=== PATIENT | male | born 1975 | race African-American/Black ===

== ENCOUNTER 2019-12-14 02:17 | Inpatient (IN) | payer MEDICAID ==
[~2019-12-14] VITALS: Ht 175.3 cm; Wt 113.4 kg
[2019-12-14] MEDS ORDERED: ASPIRIN 325MG TABLET PO ONE (03:30)
[2019-12-14 03:32] LABS: BASOPHILS % 1.1 % (0.0-2.0); EOSINOPHILS % 2.6 % (0.0-5.0); HEMATOCRIT. 55.2 % (42.0-52.0); HEMOGLOBIN. 18.1 g/dL (14.0-18.0); LYMPHOCYTES % 26.9 % (20.0-50.0); MEAN CORPUSCULAR HEMOGLOBIN 31.1 pg (28.0-32.0); MEAN CORPUSCULAR VOLUME 94.9 fL (80.0-94.0); MEAN PLATELET VOLUME 8.2 fl (7.4-10.4); MONOCYTES % 10.3 % (2.0-8.0); NEUTROPHILS % 59.1 % (40.0-76.0); PLATELET 279 x1000/uL (130-400); RED BLOOD CELL COUNT 5.82 mill/uL (4.7-6.1); RED CELL DISTRIBUTION WIDTH 15.4 % (11.6-14.6)
[2019-12-14 03:33] LABS: CHLORIDE 101 mEq/L (98-107)
[2019-12-14 04:36] LABS: *AMPHETAMINES SCREEN URINE NEGATIVE (NEGATIVE); CANNABINOID URINE SCREEN PRESUMTIVE POSITIVE (NEGATIVE); METHADONE URINE SCREEN NEGATIVE (NEGATIVE); OPIATES URINE SCREEN NEGATIVE (NEGATIVE); PHENCYCLIDINE URINE SCREEN NEGATIVE (NEGATIVE)
[2019-12-14 04:37] LABS: *BARBITURATES SCREEN URINE NEGATIVE (NEGATIVE); *BENZODIAZEPINES SCREEN URINE NEGATIVE (NEGATIVE); *COCAINE SCREEN URINE NEGATIVE (NEGATIVE)
[2019-12-14] MEDS ORDERED: MAGNESIUM/ALUMINUM HYDROXIDE/SIMETHICONE 30ML UDC PO PRN (06:45)
[2019-12-14] MEDS ORDERED: CLONIDINE 0.1MG TABLET PO PRN (06:45)
[2019-12-14] MEDS ORDERED: ONDANSETRON HCL 4MG/2ML INJ IV PRN (06:45)
[2019-12-14] MEDS ORDERED: GUAIFENESIN 200MG/10ML SUGAR FREE UDC PO PRN (06:45)
[2019-12-14] MEDS ORDERED: DIPHENHYDRAMINE 50MG/ML VIAL IV PRN (06:45)
[2019-12-14] MEDS ORDERED: LORAZEPAM 2MG/ML CPJ IV PRN (06:45)
[2019-12-14] MEDS ORDERED: ACETAMINOPHEN 325MG TABLET PO PRN (06:45)
[2019-12-14] MEDS ORDERED: DOCUSATE SODIUM 100MG CAPSULE PO PRN (06:45)
[2019-12-14] MEDS ORDERED: HYDROCODONE/ACETAMINOPHEN 10/325MG TABLET PO PRN (06:45)
[2019-12-14] MEDS ORDERED: IPRATROPIUM/ALBUTEROL 0.5-3(2.5)MG/3ML NEB HHN PRN (06:45)
[2019-12-14] MEDS ORDERED: MORPHINE SULFATE 2 MG/ML CPJ (NOT FOR IM USE) IV PRN (06:45)
[2019-12-14] MEDS ORDERED: HYDRALAZINE 20MG/ML VIAL IV PRN (06:45)
[2019-12-14 09:33] LABS: T4 FREE 1.48 ng/dL (0.76-1.46)
[2019-12-14] MEDS: FUROSEMIDE 40MG/4ML VIAL IVP SCH (09:56)
[2019-12-14] MEDS: ENOXAPARIN 30MG/0.3ML SYR SUBCUT SCH ×2 (09:58→21:01)
[2019-12-14 17:34] VITALS: BP 153/83
[2019-12-14 18:00] VITALS: BP 158/83
[2019-12-14 22:00] VITALS: BP 130/68
[2019-12-14] MEDS: SODIUM CHLORIDE 0.9% INJ 3ML FLUSH IVF SCH (22:00)
[2019-12-15] VITALS (10 sets, daily range): BP systolic 108–144; BP diastolic 52–111
[2019-12-15 00:02] LABS: CREATINE KINASE 76 IU/L (39-308); CREATINE KINASE MB FRACTION 2.8 ng/mL (0.5-3.6)
[2019-12-15] MEDS: SODIUM CHLORIDE 0.9% INJ 3ML FLUSH IVF SCH ×3 (05:22→21:49)
[2019-12-15] MEDS: FUROSEMIDE 40MG/4ML VIAL IVP SCH (07:54)
[2019-12-15] MEDS: ENOXAPARIN 30MG/0.3ML SYR SUBCUT SCH ×2 (07:54→21:49)
[2019-12-15 12:11] LABS: BG BASE EXCESS 12.4 mmol/L (-2.0-2.0); BG CARBOXYHEMOGLOBIN 0.8 % (0.5-1.5); BG DEOXYHEMOGLOBIN 1.7 % (0.0-5.0); BG FRACTION INSPIRED OXYGEN 34; BG HCO3 ACT 44.7 mmol/L (22.0-26.0); BG METHEMOGLOBIN 0.6 % (0.0-1.5); BG OXYGEN SATURATION 98.3 % (92.0-98.5); BG OXYHEMOGLOBIN 96.9 % (94.0-97.0); BG PCO2 89.6 mmHg (35.0-45.0); BG PH 7.316 (7.350-7.450); BG SAMPLE SITE RIGHT RADIAL; BG TOTAL HEMOGLOBIN 19.2 g/dL (12.0-18.0); BG VENT MODE NASAL CANNULA
[2019-12-15 12:48] LABS: BASOPHILS % 1.2 % (0.0-2.0); EOSINOPHILS % 2.2 % (0.0-5.0); HEMATOCRIT. 55.6 % (42.0-52.0); HEMOGLOBIN. 17.8 g/dL (14.0-18.0); LYMPHOCYTES % 26.4 % (20.0-50.0); MEAN CORPUSCULAR HEMOGLOBIN 30.8 pg (28.0-32.0); MEAN PLATELET VOLUME 8.1 fl (7.4-10.4); MONOCYTES % 11.8 % (2.0-8.0); NEUTROPHILS % 58.4 % (40.0-76.0); PLATELET 254 x1000/uL (130-400); RED BLOOD CELL COUNT 5.79 mill/uL (4.7-6.1); RED CELL DISTRIBUTION WIDTH 15.5 % (11.6-14.6)
[2019-12-15 12:53] LABS: CHLORIDE 97 mEq/L (98-107)
[2019-12-16] VITALS (12 sets, daily range): BP systolic 120–152; BP diastolic 61–99
[2019-12-16] MEDS: SODIUM CHLORIDE 0.9% INJ 3ML FLUSH IVF SCH ×3 (05:56→20:19)
[2019-12-16 06:33] LABS: BASOPHILS % 0.8 % (0.0-2.0); EOSINOPHILS % 2.6 % (0.0-5.0); HEMATOCRIT. 55.1 % (42.0-52.0); HEMOGLOBIN. 18.1 g/dL (14.0-18.0); LYMPHOCYTES % 27.9 % (20.0-50.0); MEAN CORPUSCULAR HEMOGLOBIN 31.1 pg (28.0-32.0); MEAN CORPUSCULAR VOLUME 94.8 fL (80.0-94.0); MEAN PLATELET VOLUME 8.1 fl (7.4-10.4); MONOCYTES % 10.9 % (2.0-8.0); NEUTROPHILS % 57.8 % (40.0-76.0); PLATELET 230 x1000/uL (130-400); RED BLOOD CELL COUNT 5.81 mill/uL (4.7-6.1); RED CELL DISTRIBUTION WIDTH 15.5 % (11.6-14.6)
[2019-12-16 07:02] LABS: CHLORIDE 98 mEq/L (98-107)
[2019-12-16] MEDS: FUROSEMIDE 40MG/4ML VIAL IVP SCH (08:06)
[2019-12-16] MEDS: ENOXAPARIN 30MG/0.3ML SYR SUBCUT SCH ×2 (08:06→20:19)
[2019-12-16] MEDS ORDERED: LIDOCAINE HCL/PF 1% 2ML VIAL ONE (09:55)
[2019-12-16 13:52] LABS: BG BASE EXCESS 10.1 mmol/L (-2.0-2.0); BG DEOXYHEMOGLOBIN 12.9 % (0.0-5.0); BG FRACTION INSPIRED OXYGEN 21; BG HCO3 ACT 39.4 mmol/L (22.0-26.0); BG METHEMOGLOBIN 0.2 % (0.0-1.5); BG OXYGEN SATURATION 86.9 % (92.0-98.5); BG OXYHEMOGLOBIN 85.9 % (94.0-97.0); BG PCO2 67.9 mmHg (35.0-45.0); BG PH 7.382 (7.350-7.450); BG PO2 50.5 mmHg (75.0-100.0); BG SAMPLE SITE RIGHT RADIAL; BG TOTAL HEMOGLOBIN 19.9 g/dL (12.0-18.0); BG VENT MODE ROOM AIR
[2019-12-17] VITALS (13 sets, daily range): BP systolic 113–150; BP diastolic 62–87
[2019-12-17] MEDS: SODIUM CHLORIDE 0.9% INJ 3ML FLUSH IVF SCH ×3 (06:13→20:34)
[2019-12-17] MEDS: FUROSEMIDE 40MG/4ML VIAL IVP SCH (08:09)
[2019-12-17] MEDS: ENOXAPARIN 30MG/0.3ML SYR SUBCUT SCH ×2 (08:09→20:33)
== END 2019-12-17 23:27 | disposition home or self-care (01) | DRG 133 ==
LOC: ER 02:39 → ENRESERV 15:04 → 3WST 17:26
PROVIDERS: ADMIT Internal Medicine; ATTEND Internal Medicine
DX: J96.00 Acute respiratory failure, unspecified whether with hypoxia or hypercapnia (principal); J44.9 Chronic obstructive pulmonary disease, unspecified; F12.90 Cannabis use, unspecified, uncomplicated; I50.9 Heart failure, unspecified; Z87.891 Personal history of nicotine dependence; Z99.81 Dependence on supplemental oxygen; Z79.899 Other long term (current) drug therapy
CPT/HCPCS: 36415; 36600; 71045; 80048; 80053; 80061; 80305; 82375; 82550; 82553; 82805; 83036; 83880; 84439; 84443; 84484; 85025; 85379; 93005; 93306; 93970; 94640; 99291; J1650; J1940; J3490

== ENCOUNTER 2021-04-08 03:27 | Inpatient (IN) | payer MEDICAID, OTHER ==
[~2021-04-08] VITALS: Ht 175.3 cm; Wt 122.0 kg
[2021-04-08] MEDS ORDERED: FUROSEMIDE 40MG/4ML VIAL IVP ONE (10:00)
[2021-04-08 11:05] LABS: BASOPHILS % 0.8 % (0.0-2.0); EOSINOPHILS % 2.1 % (0.0-5.0); HEMATOCRIT. 57.7 % (42.0-52.0); HEMOGLOBIN. 17.8 g/dL (14.0-18.0); LYMPHOCYTES % 21.3 % (20.0-50.0); MEAN CORPUSCULAR VOLUME 84.3 fL (80.0-94.0); MONOCYTES % 11.9 % (2.0-8.0); NEUTROPHILS % 63.9 % (40.0-76.0); PLATELET 264 x1000/uL (130-400); RED BLOOD CELL COUNT 6.84 mill/uL (4.7-6.1); RED CELL DISTRIBUTION WIDTH 19.6 % (11.6-14.6)
[2021-04-08 11:09] LABS: CHLORIDE 96 mEq/L (98-107)
[2021-04-08 12:23] LABS: BG BASE EXCESS 15.1 mmol/L (-2.0-2.0); BG CARBOXYHEMOGLOBIN 2.4 % (0.5-1.5); BG FRACTION INSPIRED OXYGEN 21; BG HCO3 ACT 48.1 mmol/L (22.0-26.0); BG METHEMOGLOBIN 0.1 % (0.0-1.5); BG OXYHEMOGLOBIN 59.5 % (94.0-97.0); BG PCO2 94.1 mmHg (35.0-45.0); BG PH 7.326 (7.350-7.450); BG PO2 34.3 mmHg (75.0-100.0); BG SAMPLE SITE RIGHT RADIAL; BG TOTAL HEMOGLOBIN 19.2 g/dL (12.0-18.0); BG VENT MODE ROOM AIR
[2021-04-08] MEDS ORDERED: ACETAMINOPHEN 325MG TABLET PO PRN (13:30)
[2021-04-08] MEDS ORDERED: IPRATROPIUM/ALBUTEROL 0.5-3(2.5)MG/3ML NEB HHN PRN (13:30)
[2021-04-08] MEDS ORDERED: ONDANSETRON HCL 4MG/2ML INJ IV PRN (13:30)
[2021-04-08] MEDS ORDERED: METHYLPREDNISOLONE SOD SUCC 40 MG/ML VIAL IV SCH (15:30)
[2021-04-08 16:20] LABS: BG BASE EXCESS 11.3 mmol/L (-2.0-2.0); BG CARBOXYHEMOGLOBIN 1.4 % (0.5-1.5); BG FRACTION INSPIRED OXYGEN 5016; BG HCO3 ACT 44.5 mmol/L (22.0-26.0); BG METHEMOGLOBIN 0.6 % (0.0-1.5); BG PCO2 97.1 mmHg (35.0-45.0); BG PH 7.279 (7.350-7.450); BG PO2 174.6 mmHg (75.0-100.0); BG TOTAL HEMOGLOBIN 19.2 g/dL (12.0-18.0); BG VENT MODE MASK - BIPAP
[2021-04-08] MEDS: FUROSEMIDE 40MG/4ML VIAL IVP SCH (17:32)
[2021-04-08] MEDS ORDERED: ENOXAPARIN 30MG/0.3ML SYR SUBCUT SCH (18:00)
[2021-04-08 23:29] VITALS: BP 137/66
[2021-04-08] MEDS ORDERED: FURO-151 MT (23:54)
[2021-04-08] MEDS ORDERED: POTA25TA8 MT (23:54)
[2021-04-08] MEDS ORDERED: LASIX (23:54)
[2021-04-09] VITALS (11 sets, daily range): BP systolic 109–146; BP diastolic 49–87
[2021-04-09] MEDS: METHYLPREDNISOLONE SOD SUCC 40 MG/ML VIAL IV SCH ×4 (00:06→21:37)
[2021-04-09] MEDS: ENOXAPARIN 30MG/0.3ML SYR SUBCUT SCH ×3 (00:06→21:36)
[2021-04-09] MEDS: FUROSEMIDE 40MG/4ML VIAL IVP SCH ×2 (08:20→17:19)
[2021-04-09 09:08] LABS: BASOPHILS % 0.4 % (0.0-2.0); HEMATOCRIT. 57.9 % (42.0-52.0); HEMOGLOBIN. 17.8 g/dL (14.0-18.0); LYMPHOCYTES % 10.7 % (20.0-50.0); MEAN CORPUSCULAR HEMOGLOBIN 26.3 pg (28.0-32.0); MEAN CORPUSCULAR VOLUME 85.4 fL (80.0-94.0); MEAN PLATELET VOLUME 8.2 fl (7.4-10.4); MONOCYTES % 1.2 % (2.0-8.0); NEUTROPHILS % 87.7 % (40.0-76.0); PLATELET 261 x1000/uL (130-400); RED BLOOD CELL COUNT 6.78 mill/uL (4.7-6.1); RED CELL DISTRIBUTION WIDTH 20.1 % (11.6-14.6)
[2021-04-09 09:14] LABS: CHLORIDE 94 mEq/L (98-107)
[2021-04-09] MEDS: IPRATROPIUM/ALBUTEROL 0.5-3(2.5)MG/3ML NEB HHN SCH ×3 (10:08→22:07)
[2021-04-09 12:03] LABS: BG BASE EXCESS 17.1 mmol/L (-2.0-2.0); BG CARBOXYHEMOGLOBIN 1.6 % (0.5-1.5); BG DEOXYHEMOGLOBIN 6.6 % (0.0-5.0); BG FRACTION INSPIRED OXYGEN 36; BG HCO3 ACT 47.8 mmol/L (22.0-26.0); BG METHEMOGLOBIN 0.5 % (0.0-1.5); BG OXYGEN SATURATION 93.3 % (92.0-98.5); BG OXYHEMOGLOBIN 91.3 % (94.0-97.0); BG PCO2 77.6 mmHg (35.0-45.0); BG PH 7.407 (7.350-7.450); BG SAMPLE SITE RIGHT RADIAL; BG TOTAL HEMOGLOBIN 18.9 g/dL (12.0-18.0); BG VENT MODE NASAL CANNULA
[2021-04-10] VITALS (12 sets, daily range): BP systolic 114–168; BP diastolic 69–115
[2021-04-10] MEDS: IPRATROPIUM/ALBUTEROL 0.5-3(2.5)MG/3ML NEB HHN SCH ×4 (02:00→21:40)
[2021-04-10] MEDS: METHYLPREDNISOLONE SOD SUCC 40 MG/ML VIAL IV SCH ×3 (05:34→21:30)
[2021-04-10 07:03] LABS: CHLORIDE 91 mEq/L (98-107)
[2021-04-10 07:23] LABS: BASOPHILS % 0.1 % (0.0-2.0); HEMATOCRIT. 52.4 % (42.0-52.0); HEMOGLOBIN. 16.4 g/dL (14.0-18.0); LYMPHOCYTES % 7.3 % (20.0-50.0); MEAN CORPUSCULAR HEMOGLOBIN 26.4 pg (28.0-32.0); MEAN CORPUSCULAR VOLUME 84.5 fL (80.0-94.0); MEAN PLATELET VOLUME 8.5 fl (7.4-10.4); MONOCYTES % 4.3 % (2.0-8.0); NEUTROPHILS % 88.3 % (40.0-76.0); PLATELET 317 x1000/uL (130-400); RED BLOOD CELL COUNT 6.21 mill/uL (4.7-6.1); RED CELL DISTRIBUTION WIDTH 19.9 % (11.6-14.6)
[2021-04-10] MEDS: FUROSEMIDE 40MG/4ML VIAL IVP SCH ×2 (08:31→17:18)
[2021-04-10] MEDS: ENOXAPARIN 30MG/0.3ML SYR SUBCUT SCH ×2 (08:32→21:30)
[2021-04-10] MEDS: SPIRONOLACTONE 25MG TABLET PO SCH (17:21)
[2021-04-11] VITALS (10 sets, daily range): BP systolic 123–166; BP diastolic 69–94
[2021-04-11] MEDS: IPRATROPIUM/ALBUTEROL 0.5-3(2.5)MG/3ML NEB HHN SCH ×3 (03:30→14:36)
[2021-04-11] MEDS: FUROSEMIDE 40MG/4ML VIAL IVP SCH (05:23)
[2021-04-11] MEDS: METHYLPREDNISOLONE SOD SUCC 40 MG/ML VIAL IV SCH ×2 (05:24→14:05)
[2021-04-11 07:32] LABS: HEMATOCRIT. 56.5 % (42.0-52.0); HEMOGLOBIN. 17.7 g/dL (14.0-18.0); MEAN CORPUSCULAR HEMOGLOBIN 26.3 pg (28.0-32.0); MEAN CORPUSCULAR VOLUME 83.9 fL (80.0-94.0); MEAN PLATELET VOLUME 8.3 fl (7.4-10.4); PLATELET 299 x1000/uL (130-400); RED BLOOD CELL COUNT 6.74 mill/uL (4.7-6.1); RED CELL DISTRIBUTION WIDTH 19.7 % (11.6-14.6)
[2021-04-11 08:05] LABS: CHLORIDE 91 mEq/L (98-107)
[2021-04-11 09:29] LABS: BG BASE EXCESS 11.6 mmol/L (-2.0-2.0); BG CARBOXYHEMOGLOBIN 1.3 % (0.5-1.5); BG DEOXYHEMOGLOBIN 6.2 % (0.0-5.0); BG FRACTION INSPIRED OXYGEN 28; BG HCO3 ACT 39.2 mmol/L (22.0-26.0); BG METHEMOGLOBIN 0.3 % (0.0-1.5); BG OXYGEN SATURATION 93.7 % (92.0-98.5); BG OXYHEMOGLOBIN 92.2 % (94.0-97.0); BG PH 7.433 (7.350-7.450); BG PO2 70.1 mmHg (75.0-100.0); BG SAMPLE SITE RIGHT RADIAL; BG TOTAL HEMOGLOBIN 17.8 g/dL (12.0-18.0); BG VENT MODE NASAL CANNULA
[2021-04-11] MEDS: SPIRONOLACTONE 25MG TABLET PO SCH (09:33)
[2021-04-11] MEDS: ENOXAPARIN 30MG/0.3ML SYR SUBCUT SCH (09:33)
[2021-04-11] MEDS ORDERED: MED4 MT (12:36)
[2021-04-11] MEDS ORDERED: FURO40TA5 MT (12:36)
[2021-04-11] MEDS ORDERED: SPIR25TA PO (12:36)
[2021-04-11 12:41] LABS: PLATELET ESTIMATE NORMAL
[2021-04-11] MEDS ORDERED: SALM50DI INH (13:16)
[2021-04-11] MEDS ORDERED: ALBU6.7H9 INH (13:16)
== END 2021-04-11 17:00 | disposition home or self-care (01) | DRG 194 ==
LOC: ER 04:57 → 3WST 12:30 → ENRESERV 21:12
PROVIDERS: ADMIT Internal Medicine; ATTEND Internal Medicine
PROC: 5A09357 Assistance with Respiratory Ventilation, Less than 24 Consecutive Hours, Continuous Positive Airway Pressure (ICD-10-PCS; principal; 2021-04-08)
PROC: 5A09357 Assistance with Respiratory Ventilation, Less than 24 Consecutive Hours, Continuous Positive Airway Pressure (ICD-10-PCS; 2021-04-09)
DX: I11.0 Hypertensive heart disease with heart failure (principal); G93.40 Encephalopathy, unspecified; E87.2 Acidosis; J96.01 Acute respiratory failure with hypoxia; J96.02 Acute respiratory failure with hypercapnia; E44.0 Moderate protein-calorie malnutrition; L03.115 Cellulitis of right lower limb; J44.1 Chronic obstructive pulmonary disease with (acute) exacerbation; E66.2 Morbid (severe) obesity with alveolar hypoventilation; I50.43 Acute on chronic combined systolic (congestive) and diastolic (congestive) heart failure; F17.210 Nicotine dependence, cigarettes, uncomplicated; F32.A Depression, unspecified; F41.9 Anxiety disorder, unspecified; G47.00 Insomnia, unspecified; J98.11 Atelectasis; L03.116 Cellulitis of left lower limb; Z20.822 Contact with and (suspected) exposure to COVID-19; E87.8 Other disorders of electrolyte and fluid balance, not elsewhere classified; Z53.20 Procedure and treatment not carried out because of patient's decision for unspecified reasons; Z68.39 Body mass index [BMI] 39.0-39.9, adult; Z59.00 Homelessness unspecified
CPT/HCPCS: 36415; 36600; 71045; 80048; 80053; 82375; 82805; 83880; 84145; 84443; 84484; 85025; 85379; 87426; 93005; 93306; 93970; 94640; 94660; 99291; J1650; J1940; J2920